=== PATIENT | female | born 1955 | race Caucasian/White ===

== ENCOUNTER → 2024-10-15 | Outpatient (CLI) | payer MEDICARE, MEDICAID, SELFPAY ==
--- NOTE | 2024-10-15 10:00 | XR_ITS ---
Examination: Breast ultrasound complete, bilateral Date and time of exam: October 15, 2024 1039 hours INDICATIONS: Mammogram February 20, 2024 8 mm focal asymmetry outer right breast CC view Technique: Real-time grayscale ultrasonographic imaging bilateral breasts, including all 4 quadrants as well as nipple retroareolar and axillary regions. Findings: Sonographic images right and left breast demonstrated no cystic or solid masses IMPRESSION: BI-RADS Category 1: Negative studies
--- NOTE | 2024-10-15 11:15 | XR_ITS ---
Examination: Diagnostic digital mammography, bilateral Computer aided detection 3-D breast Tomosynthesis, bilateral Date and time of exam: October 15, 2024 1050 hours INDICATIONS: Mammogram February 20 2024 mm focal asymmetry outer right breast CC view Technique: Nonmagnified MLO, CC views of the breasts to been obtained, reconstructed from 3-D Tomosynthesis images. R2 computer aided detection program utilized for evaluation of suspicious masses and/or abnormal calcifications. 3-D Tomosynthesis images obtained. Findings: Scattered areas of fibroglandular density. 10 mm focal asymmetry outer right breast CC view Impression: BI-RADS Category 3: Probably benign findings 6 month right mammography follow-up is needed
== END | disposition home or self-care (01) ==
LOC: CDIM 10:26
PROVIDERS: Referring Provider Family Medicine; Visit Provider Family Medicine
DX: R92.333 Mammographic heterogeneous density, bilateral breasts (principal); N64.89 Other specified disorders of breast
CPT/HCPCS: 76641; 77062; 77066; G0279

== ENCOUNTER → 2025-04-14 | Outpatient (CLI) | payer MEDICARE, MEDICAID, SELFPAY ==
--- NOTE | 2025-04-14 11:00 | XR_ITS ---
Examination: Diagnostic digital mammography, unilateral, right Computer aided detection 3-D breast Tomosynthesis, unilateral Date and time of exam: April 14, 2025 1102 hours INDICATIONS: Mammogram October 15, 2024 10 mm focal asymmetry outer right breast on the CC view Technique: Nonmagnified MLO, CC views of the right breast have been obtained, reconstructed from 3-D Tomosynthesis images. R2 computer aided detection program utilized for evaluation of suspicious masses and/or abnormal calcifications. 3-D Tomosynthesis images obtained. Findings: Scattered areas of fibroglandular density. No suspicious mass depicted on the current mammogram Impression: BI-RADS category 2: Benign findings Return to yearly follow-up mammography
== END | disposition home or self-care (01) ==
LOC: CDIM 10:49
PROVIDERS: Referring Provider Family Medicine; Visit Provider Family Medicine
DX: R92.321 Mammographic fibroglandular density, right breast (principal)
CPT/HCPCS: 77061; 77065; G0279

== ENCOUNTER 2025-07-15 10:33 | Outpatient (AMB) | payer MEDICARE, MEDICAID, SELFPAY ==
[2025-07-15 11:09] VITALS: BP 157/81; PULSE 58; RESP 19; TEMP 36.3; O2SAT 97; BMI 21.9
--- NOTE | 2025-07-15 11:09 | PD.ORTHCLVIS ---
Vital signs 07/15/25 11:09 Height 1.59 m Height Method Stated Weight 55.111 kg Weight Measurement Method Standing Scale BMI 21.9 BP 157/81 H Blood Pressure Source Automatic Cuff Blood Pressure Location Right Upper Arm Position Sitting Respiration 19 Pulse 58 L Pulse Source Monitor Temp 97.4 F Temp Source Temporal Artery Scan Pulse Oximetry (%) 97 Oxygen Delivery Method Room Air Med/Allergies Allergies & Medications Allergies iodine Allergy (Intermediate, Verified 07/15/25 11:09) Hives Medication Reconciliation metoprolol tartrate 50 mg tablet (Lopressor) 25 mg PO QDAY 12/13/22 [History Confirmed 07/15/25] Exam Exam Patient is in no acute distress and is cooperative with the examination today. Breathing is nonlabored. In no respiratory distress. Patient has no paraspinal tenderness. Spinal deformity [cannot] be appreciated. The gait of the patient is [nonantalgic] Bilateral extremities were evaluated and demonstrates sensation intact to light touch. Palpable pedal pulses are present. No significant edema is present. Bilateral knees were examined and the patient has full strength and range of motion.. The right hip was examined. Patient was able to flex to 90 degrees, adduct to 30 degrees, abduct to 40 degrees, internally rotate to 20 degrees, and externally rotate to 20 degrees. Patient has a negative logroll. Stinchfield is negative. The patient is nontender diffusely to touch. The left hip was examined. Patient was able to flex to [90] degrees, adduct to [30] degrees, abduct to [40] degrees, internally rotate to [20] degrees, and externally rotate to 10 degrees. Patient has a Positive logroll. The stinchfield is [negative]. X-rays of the bilateral hip demonstrate moderate arthritis of the right hip based on x-rays obtained at [facility] [place]. This has progressed from the last x-rays Assessment and Plan Problem List (1) Bilateral hip joint arthritis: Status: Acute Plan: 68-year-old female with bilateral hip arthritis. T moderate arthritis of the right hip. She does not want to take any medications or injections. At this point we discussed that all I really can offer her is physical therapy or a total hip replacement. She does not want to undergo surgery at this time and we will continue to watch it. Will see her in approximately 6 months Advanced Care Planning Discussion Advance care planning discussed with:: patient Office Procedures GNS Level of Care Nursing/Assessment Patient Status: Initial/New Patient Nursing Assessment/Reassesment: Medication Reconciliation, Update PMH in EMR and Vital Signs Coordination of Care: Complex Care and Chronic Disease 1-5, Education Complex Pt/Fam, Consent,records obtained, informed consent, Results/Orders obtained and Staff clarify orders New Patient Charge New Patient Point Assignment: 1094 New Patient Point Charge: MANUFACTURING MECHANIC Level 3 ([id number]) MA Intake Visit Data Collection New Patient or Established: New Patient (never been to [facility]) Reason for Visit:: RIGHT HIP Seen by Clinical Staff ONLY (RN/MA): No Verbal consent obtained for Telemed visit?: No Strike On Machine Operator Required: No PCP or OBGYN visit in last 3 months: Yes Hx Now: No Do You Feel Safe at Home: Yes Authorities Contacted: N/A Questionairres Past Medical History Past Medical History Have you ever been diagnosed with any of the following: Neurological Problems Seizures: No Migraine: Yes Cardiology Problems Congestive Heart Failure: No Varicose Veins: No Respiratory Problems Chronic Obstructive Pulmonary Disease (COPD): No Smoking: No Smoking Cessation Counseling: No Smoking Exposure: No Tobacco Use: No Clubbing: No Genital/Urinary Problems Renal Disease: No Reproductive Problems Previous Pregnancies: Yes Endocrine Problems Diabetes Mellitus Type 1: No Diabetes Mellitus Type 2: No Other Problems Hospitalization: Yes (surgery) Blood Transfusions: No Blood Transfusion Reaction: No Anesthesia Reactions: No Chicken Pox: Yes Measles: Yes Cancer: No Surgical History Hysterectomy: Yes Subjective Visit Visit for: new patient and hip Immunization / Flu Flu Vaccine in the Last 12 Months: No Flu Vaccine Exclusion Criteria: No Exclusion Criteria History of Present Illness Chief complaint: RIGHT HIP PAIN Patient is a 70-year-old female with right hip pain. The pain is in the groin. She now has difficulty putting on socks and shoes. The pain is starting to occur more frequently. She refuses to take any medications or have any injections because she is afraid of needles. Personal History Occupation: RETIRED [employer] PMH: BMI BMI Counceling provided: No Pain Pain level (0-10): 6 Pain duration: ALL DAY Pain location: groin, outside (lateral) and posterior Pain quality: sharp, dull and aching Pain timing: increases with activity Associated signs & symptoms: stiffness Ambulatory data Ambulatory device: none Treatments Improvement with previous injections: No Improvement with PT: No Improvement with NSAIDS: no Review of Systems Review of Systems: All systems negative unless otherwise noted in HPI.
== END 2025-07-15 11:17 | disposition home or self-care (01) ==
LOC: HODSRG 10:33
PROVIDERS: PCP Family Medicine; Referring Provider Family Medicine; Supervising Provider Orthopaedic Surgery Adult Reconstructive Orthopaedic Surgery; Visit Provider Orthopaedic Surgery Adult Reconstructive Orthopaedic Surgery
DX: M16.0 Bilateral primary osteoarthritis of hip (principal); M25.551 Pain in right hip
CPT/HCPCS: 99203; G0463